=== PATIENT | female | born 1955 | race African-American/Black ===

== ENCOUNTER 2022-02-12 09:36 | Inpatient (IN) ==
[2022-02-12] MEDS ORDERED: LIDOCAINE 2% 5 ML VIAL ONE (09:50)
[2022-02-12] MEDS ORDERED: fentaNYL 100 MCG/2 ML VIAL ONE ×2 (09:50→11:04)
[2022-02-12] MEDS ORDERED: propofoL 200 MG/20 ML VIAL IV ONE ×2 (09:50→11:25)
[2022-02-12] MEDS ORDERED: MIDAZOLAM 2 MG/2 ML VIAL ONE (09:52)
[2022-02-12] MEDS ORDERED: FAMOTIDINE 20 MG TABLET PO ONE (10:09)
[2022-02-12] MEDS ORDERED: DIAZEPAM 5 MG TABLET PO ONE (10:09)
[2022-02-12] MEDS ORDERED: ROCURONIUM 50 MG/5 ML VIAL IV ONE (10:28)
[2022-02-12] MEDS ORDERED: LACTATED RINGERS 1,000 ML IV SCH (10:30)
[2022-02-12] MEDS ORDERED: ONDANSETRON 4 MG/2 ML VIAL ONE (10:38)
[2022-02-12] MEDS ORDERED: SEVOFLURANE 1 UNIT/15 MINUTE INH ONE ×6 (10:46→11:42)
[2022-02-12] MEDS ORDERED: VANCOMYCIN 1,000 MG VIAL ONE (10:52)
[2022-02-12] MEDS ORDERED: SODIUM CHLORIDE 0.9% 250 ML IV ONE (10:52)
[2022-02-12] MEDS ORDERED: SUGAMMADEX 200 MG/2 ML VIAL IV ONE (11:02)
[2022-02-12] MEDS ORDERED: LACTATED RINGERS 1,000 ML IV ONE (11:08)
[2022-02-12] MEDS ORDERED: hydrALAZINE 20 MG/1 ML VIAL ONE (11:08)
[2022-02-12] MEDS ORDERED: ceFAZolin 1,000 MG VIAL ONE (11:12)
[2022-02-12] MEDS ORDERED: PHENYLEPHRINE 1 MG/10 ML SYRINGE IV ONE (11:15)
[2022-02-12] MEDS ORDERED: LACTULOSE 20 GM/30 ML UDCUP PO PRN (11:45)
[2022-02-12] MEDS ORDERED: MAGNESIUM HYDROXIDE SUSP 30 ML UDCUP PO PRN (11:45)
[2022-02-12] MEDS ORDERED: diphenhydrAMINE CAP 25 MG CAPSULE PO PRN (11:45)
[2022-02-12] MEDS ORDERED: ONDANSETRON 4 MG/2 ML VIAL IV PRN ×2 (11:45→12:39)
[2022-02-12] MEDS ORDERED: ALBUTEROL 2.5 MG/3 ML NEB RESP TX PRN (11:49)
[2022-02-12] MEDS ORDERED: HYDROmorphone 1 MG/1 ML SYRINGE IV PRN (12:39)
[2022-02-12] MEDS ORDERED: VANCOMYCIN INJ 1,000 MG in SODIUM CHLORIDE 0.9% 250 ML IV ONE (14:30)
[2022-02-12] MEDS ORDERED: GLUCAGON 1 MG VIAL IM PRN (16:43)
[2022-02-12] MEDS ORDERED: DEXTROSE 10% 250 ML BAG IV PRN (16:43)
[2022-02-12] MEDS: metFORMIN 500 MG TABLET PO SCH (17:18)
[2022-02-12] MEDS: ceFAZolin 2,000 MG/50 ML DUPLEX IV SCH (17:18)
[2022-02-12] MEDS ORDERED: VANCOMYCIN INJ 1,000 MG in SODIUM CHLORIDE 0.9% 250 ML IV SCH (20:00)
[2022-02-12] MEDS: lisinopriL 20 MG TABLET PO SCH (20:54)
[2022-02-12] MEDS: POTASSIUM CHLORIDE 20 MEQ TABLET PO SCH (20:54)
[2022-02-12] MEDS: INSULIN LISPRO 100 UNIT/ML SUBCUT SCH (23:33)
[2022-02-13] MEDS: ceFAZolin 2,000 MG/50 ML DUPLEX IV SCH ×3 (02:23→19:30)
[2022-02-13] MEDS: VANCOMYCIN INJ 2,000 MG in SODIUM CHLORIDE 0.9% 500 ML IV SCH ×2 (04:19→16:14)
[2022-02-13 06:02] LABS: Basophils % 0.3 % (0.0-0.8); Eosinophils # 0.2 10*3/uL (0.0-0.87); Eosinophils % 1.8 % (0.00-10.9); Hematocrit 26.5 VOL% (35.7-47.0); Hemoglobin 7.9 GM/DL (12.0-16.0); Immature Granulocytes % 0.3 %; Immature Granulocytes Absolute 0.03 #; Lymphocytes # 1.6 10*3/uL (1.4-4.0); Lymphocytes % 16.7 % (21.3-54.2); Mean Corpuscular HGB Conc 29.8 GM/DL (32-36); Mean Corpuscular Volume 80.5 FL (87-102); Mean Platelet Volume 9.3 FL (9.6-12.0); Monocytes # 0.6 10*3/uL (0.11-0.8); Monocytes % 6.4 % (1.7-12.7); Neutrophils % 74.5 % (38.7-73.9); Platelet Count 491 T/CUMM (130-400); Red Blood Count 3.29 MC/CUMM (3.8-5.5); Red Cell Distribution Width 19.1 % (9.3-17.3); White Blood Count 9.3 T/CUMM (4-12)
[2022-02-13 06:14] LABS: Calcium 8.5 MG/DL (8.5-10.1); Osmolality,Calculated 287.7 MOS/KG (273-304); Potassium 3.4 MMOL/L (3.5-5.1)
[2022-02-13] MEDS: INSULIN LISPRO 100 UNIT/ML SUBCUT SCH ×4 (07:44→22:12)
[2022-02-13] MEDS: MULTIVITAMIN (CENTRUM) TABLET PO SCH (08:26)
[2022-02-13] MEDS: PANTOPRAZOLE 40 MG TABLET PO SCH (08:26)
[2022-02-13] MEDS: CETIRIZINE 10 MG TABLET PO SCH (08:27)
[2022-02-13] MEDS: FUROSEMIDE 20 MG TABLET PO SCH (08:27)
[2022-02-13] MEDS: POTASSIUM CHLORIDE 20 MEQ TABLET PO SCH ×2 (08:27→20:31)
[2022-02-13] MEDS: MAGNESIUM CHLORIDE 64 MG TABLET PO SCH (08:27)
[2022-02-13] MEDS: amLODIPine 10 MG TABLET PO SCH (08:27)
[2022-02-13] MEDS: ATORVASTATIN 40 MG TABLET PO SCH (08:27)
[2022-02-13] MEDS: metFORMIN 500 MG TABLET PO SCH ×2 (08:27→16:14)
[2022-02-13] MEDS: lisinopriL 20 MG TABLET PO SCH ×2 (08:27→20:31)
[2022-02-13] MEDS: MELOXICAM 7.5 MG TABLET PO SCH (08:27)
[2022-02-13] MEDS: ASPIRIN EC 81 MG TABLET PO SCH (08:27)
[2022-02-14] MEDS: ceFAZolin 2,000 MG/50 ML DUPLEX IV SCH (02:02)
[2022-02-14] MEDS: VANCOMYCIN INJ 2,000 MG in SODIUM CHLORIDE 0.9% 500 ML IV SCH (03:00)
[2022-02-14 05:13] LABS: Basophils % 0.3 % (0.0-0.8); Eosinophils # 0.3 10*3/uL (0.0-0.87); Hematocrit 26.5 VOL% (35.7-47.0); Hemoglobin 7.7 GM/DL (12.0-16.0); Immature Granulocytes % 0.4 %; Immature Granulocytes Absolute 0.03 #; Lymphocytes # 1.7 10*3/uL (1.4-4.0); Lymphocytes % 21.5 % (21.3-54.2); Mean Corpuscular HGB Conc 29.1 GM/DL (32-36); Mean Corpuscular Volume 83.3 FL (87-102); Mean Platelet Volume 9.3 FL (9.6-12.0); Monocytes # 0.6 10*3/uL (0.11-0.8); Monocytes % 8.1 % (1.7-12.7); Neutrophils % 65.7 % (38.7-73.9); Platelet Count 437 T/CUMM (130-400); Red Blood Count 3.18 MC/CUMM (3.8-5.5); Red Cell Distribution Width 18.8 % (9.3-17.3); White Blood Count 7.8 T/CUMM (4-12)
[2022-02-14] MEDS: INSULIN LISPRO 100 UNIT/ML SUBCUT SCH ×4 (08:00→20:35)
[2022-02-14] MEDS: MELOXICAM 7.5 MG TABLET PO SCH (08:40)
[2022-02-14] MEDS: ATORVASTATIN 40 MG TABLET PO SCH (08:40)
[2022-02-14] MEDS: CETIRIZINE 10 MG TABLET PO SCH (08:40)
[2022-02-14] MEDS: amLODIPine 10 MG TABLET PO SCH (08:40)
[2022-02-14] MEDS: POTASSIUM CHLORIDE 20 MEQ TABLET PO SCH ×2 (08:41→20:34)
[2022-02-14] MEDS: lisinopriL 20 MG TABLET PO SCH ×2 (08:41→20:34)
[2022-02-14] MEDS: PANTOPRAZOLE 40 MG TABLET PO SCH (08:41)
[2022-02-14] MEDS: metFORMIN 500 MG TABLET PO SCH ×2 (08:41→17:32)
[2022-02-14] MEDS: ASPIRIN EC 81 MG TABLET PO SCH (08:41)
[2022-02-14] MEDS: MULTIVITAMIN (CENTRUM) TABLET PO SCH (08:41)
[2022-02-14] MEDS: MAGNESIUM CHLORIDE 64 MG TABLET PO SCH (08:41)
[2022-02-14] MEDS: FUROSEMIDE 20 MG TABLET PO SCH (08:41)
[2022-02-14] MEDS ORDERED: cloNIDine 0.1 MG TABLET PO SCH (09:00)
[2022-02-14] MEDS: cefTRIAXone 2,000 MG in SODIUM CHLORIDE 0.9% 100 ML IV SCH (10:07)
[2022-02-15 05:51] LABS: Basophils % 0.4 % (0.0-0.8); Eosinophils # 0.3 10*3/uL (0.0-0.87); Eosinophils % 4.7 % (0.00-10.9); Hematocrit 27.3 VOL% (35.7-47.0); Immature Granulocytes % 0.4 %; Immature Granulocytes Absolute 0.03 #; Lymphocytes # 1.3 10*3/uL (1.4-4.0); Lymphocytes % 17.3 % (21.3-54.2); Mean Corpuscular HGB Conc 29.3 GM/DL (32-36); Mean Corpuscular Volume 81.7 FL (87-102); Mean Platelet Volume 8.9 FL (9.6-12.0); Monocytes # 0.4 10*3/uL (0.11-0.8); Neutrophils % 71.2 % (38.7-73.9); Platelet Count 445 T/CUMM (130-400); Red Blood Count 3.34 MC/CUMM (3.8-5.5); Red Cell Distribution Width 18.6 % (9.3-17.3); White Blood Count 7.3 T/CUMM (4-12)
[2022-02-15 06:22] LABS: Alanine Aminotransferase 9 U/L (13-56); Albumin 2.2 G/DL (3.4-5.0); Alkaline Phosphatase 119 U/L (45-117); Aspartate Amino Transferase 11 U/L (0-37); Bilirubin,Total < 0.39 MG/DL (0.20-1.00); Blood Urea Nitrogen 12 MG/DL (7-18); Calcium 9.3 MG/DL (8.5-10.1); Carbon Dioxide 27 MMOL/L (21-32); Chloride 107 MMOL/L (98-107); Glucose 100 MG/DL (74-106); Osmolality,Calculated 282.1 MOS/KG (273-304); Potassium 3.4 MMOL/L (3.5-5.1); Sodium 142 MMOL/L (136-145); Total Protein 6.3 G/DL (6.4-8.2)
[2022-02-15] MEDS: ASPIRIN EC 81 MG TABLET PO SCH (08:29)
[2022-02-15] MEDS: MULTIVITAMIN (CENTRUM) TABLET PO SCH (08:29)
[2022-02-15] MEDS: MELOXICAM 7.5 MG TABLET PO SCH (08:30)
[2022-02-15] MEDS: amLODIPine 10 MG TABLET PO SCH (08:30)
[2022-02-15] MEDS: FUROSEMIDE 20 MG TABLET PO SCH (08:30)
[2022-02-15] MEDS: PANTOPRAZOLE 40 MG TABLET PO SCH (08:30)
[2022-02-15] MEDS: MAGNESIUM CHLORIDE 64 MG TABLET PO SCH (08:30)
[2022-02-15] MEDS: lisinopriL 20 MG TABLET PO SCH (08:30)
[2022-02-15] MEDS: POTASSIUM CHLORIDE 20 MEQ TABLET PO SCH (08:30)
[2022-02-15] MEDS: ATORVASTATIN 40 MG TABLET PO SCH (08:30)
[2022-02-15] MEDS: CETIRIZINE 10 MG TABLET PO SCH (08:31)
[2022-02-15] MEDS: metFORMIN 500 MG TABLET PO SCH (08:31)
[2022-02-15] MEDS: cefTRIAXone 2,000 MG in SODIUM CHLORIDE 0.9% 100 ML IV SCH (08:36)
[2022-02-15 09:05] VITALS: BP 144/80
[2022-02-15] MEDS: INSULIN LISPRO 100 UNIT/ML SUBCUT SCH ×2 (09:17→13:36)
== END 2022-02-15 12:58 | disposition home health service (06) | DRG 908 ==
LOC: N.OR 09:36 → N.SDSINP 09:41 → N.3E 14:18
PROVIDERS: ADMIT Orthopaedic Surgery; ATTEND Orthopaedic Surgery